=== PATIENT | male | born 1970 | race Caucasian/White ===

== ENCOUNTER 2025-01-02 10:44 | Day surgery (SDC) | payer OTHER, BC ==
[2025-01-02] MEDS: CEFTRIAXONE 2 GM-D5W BAG 2 GM/50 ML BAG IVPB ONE (11:18)
[2025-01-02 12:14] VITALS: BP 98/66; PULSE 70; RESP 18; TEMP 98.2
== END 2025-01-02 12:14 | disposition home or self-care (01) ==
LOC: FINFUSION 10:44 → FM/S 10:44 → FINFUSION 12:14
PROVIDERS: ATTEND Internal Medicine Infectious Disease
DX: T81.40XA Infection following a procedure, unspecified, initial encounter (principal); B99.9 Unspecified infectious disease; Y83.9 Surgical procedure, unspecified as the cause of abnormal reaction of the patient, or of later complication, without mention of misadventure at the time of the procedure; Y92.9 Unspecified place or not applicable
CPT/HCPCS: 96365; 96367; J0878

== ENCOUNTER 2025-01-04 10:47 | Day surgery (SDC) | payer OTHER, BC ==
[2025-01-04] MEDS: CEFTRIAXONE 2 GM in DEXTROSE 5%-WATER 100 ML IVPB ONE (11:12)
[2025-01-04] MEDS: DAPTOMYCIN IVPB ONE (11:12)
[2025-01-04] MEDS: SODIUM CHLORIDE IVPB ONE (11:12)
[2025-01-04 12:46] VITALS: BP 116/73; PULSE 76; RESP 16; TEMP 98.4
== END 2025-01-04 12:46 | disposition home or self-care (01) ==
LOC: FINFUSION 10:47 → FM/S 10:49 → FINFUSION 12:46
PROVIDERS: ATTEND Internal Medicine Infectious Disease
DX: T81.40XA Infection following a procedure, unspecified, initial encounter (principal); B99.9 Unspecified infectious disease; Y83.9 Surgical procedure, unspecified as the cause of abnormal reaction of the patient, or of later complication, without mention of misadventure at the time of the procedure; Y92.9 Unspecified place or not applicable; Z22.322 Carrier or suspected carrier of Methicillin resistant Staphylococcus aureus
CPT/HCPCS: 96365; 96367; J0878

== ENCOUNTER 2025-01-06 10:40 | Day surgery (SDC) | payer OTHER, BC ==
[2025-01-06] MEDS: DAPTOMYCIN IVPB ONE (10:59)
[2025-01-06] MEDS: CEFTRIAXONE 2 GM in DEXTROSE 5%-WATER 100 ML IVPB ONE (11:30)
[2025-01-06 12:25] VITALS: BP 101/76; PULSE 71; RESP 18; TEMP 98.2
== END 2025-01-06 12:26 | disposition home or self-care (01) ==
LOC: FINFUSION 10:40 → FM/S 10:40 → FINFUSION 12:26
PROVIDERS: ATTEND Internal Medicine Infectious Disease
DX: T81.40XA Infection following a procedure, unspecified, initial encounter (principal); B99.9 Unspecified infectious disease; Y83.9 Surgical procedure, unspecified as the cause of abnormal reaction of the patient, or of later complication, without mention of misadventure at the time of the procedure; Y92.9 Unspecified place or not applicable; Z22.322 Carrier or suspected carrier of Methicillin resistant Staphylococcus aureus
CPT/HCPCS: 96365; 96367; J0878

== ENCOUNTER 2025-01-07 10:25 | Day surgery (SDC) | payer OTHER, BC ==
[2025-01-07] MEDS: CEFTRIAXONE 2 GM in DEXTROSE 5%-WATER 100 ML IVPB ONE (11:22)
[2025-01-07] MEDS: DAPTOMYCIN IVPB ONE (12:00)
[2025-01-07 12:29] VITALS: BP 106/68; PULSE 69; RESP 16; TEMP 98.3
== END 2025-01-07 12:46 | disposition home or self-care (01) ==
LOC: FINFUSION 10:25 → FM/S 10:26 → FINFUSION 12:46
PROVIDERS: ATTEND Internal Medicine Infectious Disease
DX: T81.40XA Infection following a procedure, unspecified, initial encounter (principal); B99.9 Unspecified infectious disease; Y83.9 Surgical procedure, unspecified as the cause of abnormal reaction of the patient, or of later complication, without mention of misadventure at the time of the procedure; Z22.322 Carrier or suspected carrier of Methicillin resistant Staphylococcus aureus
CPT/HCPCS: 96365; 96367; J0878

== ENCOUNTER 2025-01-08 10:45 | Day surgery (SDC) | payer OTHER, BC ==
[2025-01-08] MEDS: CEFTRIAXONE 2 GM in DEXTROSE 5%-WATER 100 ML IVPB ONE (11:16)
[2025-01-08] MEDS: DAPTOMYCIN IVPB ONE (11:54)
[2025-01-08 12:54] VITALS: BP 114/76; PULSE 74; RESP 16; TEMP 98.3
== END 2025-01-08 13:22 | disposition home or self-care (01) ==
LOC: FINFUSION 10:45 → FM/S 10:46 → FINFUSION 13:22
PROVIDERS: ATTEND Internal Medicine Infectious Disease
DX: T81.40XA Infection following a procedure, unspecified, initial encounter (principal); L03.311 Cellulitis of abdominal wall; B95.62 Methicillin resistant Staphylococcus aureus infection as the cause of diseases classified elsewhere; Y83.8 Other surgical procedures as the cause of abnormal reaction of the patient, or of later complication, without mention of misadventure at the time of the procedure; Y92.9 Unspecified place or not applicable
CPT/HCPCS: 96365; 96367; J0878